=== PATIENT | female | born 1940 | race American Indian/Alaskan Native ===

== ENCOUNTER 2016-06-05 17:49 | Emergency (ER) | payer MEDICARE ==
[2016-06-05 20:29] VITALS: BP 130/78
--- NOTE | 2016-06-05 21:30 | Emergency Department Report ---
ED Lower Extremity HPI - General Chief Complaint: Extremity Injury, Lower Stated Complaint: LT KNEE PAIN Time Seen by Provider: 06/05/16 19:31 Source: patient, family Mode of arrival: Ambulatory Limitations: Physical Limitation - History of Present Illness Initial Comments: This is a 76-year-old female that presents with left knee pain. Patient stated had a knee replacement on 05/25/[address] Ash for left total knee replacement. Patient now presents with left knee pain. Patient stated seen her surgeon which was prescribed clindamycin for the knee pain and redness. Patient also stated had a venous Doppler study postop which was normal. Patient denies any numbness or tingling sensations extremities. Patient denies any edema. No shortness of breath or chest pain noted. Patient has no known drug allergies. Severity scale (0 -10): 5 Improves With: other ([place] 7.5mg) - Related Data Home Medications Medication Instructions Recorded Confirmed Last Taken ALBUTEROL Inhaler [VENTOLIN 1 - 2 puff INHALATION DAILY 05/17/16 06/05/16 05:00 Inhaler] Cyanocobalamin (Vitamin B-12) 2,500 mcg PO DAILY 05/17/16 06/05/16 06/05/16 [Vitamin B12] Garlic 1,000 mg PO DAILY 05/17/16 06/05/16 06/05/16 Iron,Carbonyl/Vit C/Vit B12/FA 1 each PO DAILY 05/17/16 06/05/16 06/05/16 [Iron 100 Plus Tablet] Losartan/Hydrochlorothiazide 1 tab PO DAILY 05/17/16 06/05/16 06/05/16 [Losartan-Hctz 100-25 mg Tab] [place]-3 Fatty Acids/Fish Oil [Fish 1 each PO DAILY 05/17/16 06/05/16 06/05/16 Oil] Simvastatin [Simvastatin] 1 tab PO DAILY 05/17/16 06/05/16 06/05/16 Vitamin E 1,000 unit PO DAILY 05/17/16 06/05/16 06/05/16 Previous Rx's Medication Instructions Recorded Last Taken Type Cephalexin [Keflex] 500 mg PO Q12H 7 Days 06/05/16 Unknown Rx Allergies Allergy/AdvReac Type Severity Reaction Status Date / Time No Known Allergies Allergy Unverified 05/17/16 11:32 ED Review of Systems ROS: Stated complaint: LT KNEE PAIN Other details as noted in HPI Constitutional: denies: chills, fever Eyes: denies: eye pain, eye discharge, vision change ENT: denies: ear pain, throat pain Respiratory: denies: cough, shortness of breath, wheezing Cardiovascular: denies: chest pain, palpitations Endocrine: no symptoms reported Gastrointestinal: denies: abdominal pain, nausea, diarrhea Genitourinary: denies: urgency, dysuria, discharge Musculoskeletal: denies: back pain, joint swelling, arthralgia Skin: denies: rash, lesions Neurological: denies: headache, weakness, paresthesias Psychiatric: denies: anxiety, depression Hematological/Lymphatic: denies: easy bleeding, easy bruising ED Past Medical Hx - Past Medical History Previous Medical History?: Yes 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) Hx Heart Attack/AMI: No Hx GERD: Yes (RESOLVED) Hx Liver Disease: No Hx Renal Disease: No Hx Sickle Cell Disease: No Hx Arthritis: Yes Hx Seizures: No Hx HIV: No - Surgical History Past Surgical History?: Yes Additional Surgical History: Left knee replacement, Tubaligation - Social History Smoking Status: Former Smoker Substance Use Type: Prescribed - Medications Home Medications: Home Medications Medication Instructions Recorded Confirmed Last Taken Type ALBUTEROL Inhaler [VENTOLIN 1 - 2 puff INHALATION DAILY 05/17/16 06/05/16 05:00 History Inhaler] Cyanocobalamin (Vitamin B-12) 2,500 mcg PO DAILY 05/17/16 06/05/16 06/05/16 History [Vitamin B12] Garlic 1,000 mg PO DAILY 05/17/16 06/05/16 06/05/16 History Iron,Carbonyl/Vit C/Vit B12/FA 1 each PO DAILY 05/17/16 06/05/16 06/05/16 History [Iron 100 Plus Tablet] Losartan/Hydrochlorothiazide 1 tab PO DAILY 05/17/16 06/05/16 06/05/16 History [Losartan-Hctz 100-25 mg Tab] [place]-3 Fatty Acids/Fish Oil [Fish 1 each PO DAILY 05/17/16 06/05/16 06/05/16 History Oil] Simvastatin [Simvastatin] 1 tab PO DAILY 05/17/16 06/05/16 06/05/16 History Vitamin E 1,000 unit PO DAILY 05/17/16 06/05/16 06/05/16 History Cephalexin [Keflex] 500 mg PO Q12H 7 Days 06/05/16 Unknown Rx ED Physical Exam - General Limitations: Physical Limitation General appearance: alert, in no apparent distress - Head Head exam: Present: atraumatic, normocephalic - Eye Eye exam: Present: normal appearance - ENT ENT exam: Present: mucous membranes moist - Neck Neck exam: Present: normal inspection - Respiratory Respiratory exam: Present: normal lung sounds bilaterally. Absent: respiratory distress - Cardiovascular Cardiovascular Exam: Present: regular rate, normal rhythm. Absent: systolic murmur, diastolic murmur, rubs, gallop - GI/Abdominal GI/Abdominal exam: Present: soft, normal bowel sounds - Extremities Exam Extremities exam: Present: normal inspection - Expanded Lower Extremity Exam Left Hip exam: Present: normal inspection, full ROM. Absent: tenderness, swelling Upper Leg exam: Present: normal inspection, full ROM. Absent: tenderness, swelling Knee exam: Present: normal inspection, full ROM, tenderness, swelling (left knee ), erythema (left knee). Absent: abrasion, laceration, ecchymosis, deformity Lower Leg exam: Present: normal inspection, full ROM. Absent: tenderness, swelling Ankle exam: Present: normal inspection, full ROM. Absent: tenderness, swelling Foot/Toe exam: Present: normal inspection, full ROM. Absent: tenderness, swelling Neuro vascular tendon exam: Present: no vascular compromise Gait: Positive: observed and normal - Back Exam Back exam: Present: normal inspection - Neurological Exam Neurological exam: Present: alert, oriented X3 - Psychiatric Psychiatric exam: Present: normal affect, normal mood - Skin Skin exam: Present: warm, dry, intact, normal color. Absent: rash - Other Other exam information: Patient denies calf tenderness. Denies any numbness or tingling sensation. Normal pedal pulses is present. ED Course Vital Signs 06/05/16 06/05/16 17:56 20:28 Temperature 98.7 F Pulse Rate 85 84 Respiratory 16 18 Rate Blood Pressure 133/78 Blood Pressure 130/78 [Left] O2 Sat by Pulse 99 96 Oximetry ED Lower Extremity MDM - Medical Decision Making Ed course: This is a 76-year-old female that presents with left knee pain, swelling, and erythema 1- I instructed the patient to continue taking clindamycin as prescribed by her orthopedic. 2- I prescribed patient Keflex to add to the clindamycin. 3- I instructed the patient to follow with orthopedic doctor tomorrow 4- at the time of discharge the patient does not seem toxic or ill appearance. 5- patient agrees to treatment and discharge plan. No signs of any distress noted. No further questions noted by the patient. Critical care attestation.: If time is entered above; I have spent that time in minutes in the direct care of this critically ill patient, excluding procedure time. ED Disposition Clinical Impression: Cellulitis Qualifiers: Site of cellulitis: extremity Site of cellulitis of extremity: lower extremity Laterality: left Qualified Code(s): L03.116 - Cellulitis of left lower limb Disposition: DISCHARGED TO HOME OR SELFCARE Is pt being admited?: No Does the pt Need Aspirin: No Condition: Stable Instructions: Cellulitis (ED) Additional Instructions: Please follow-up with your orthopedic within 24 hours Take full course of antibiotics as prescribed. If symptoms worsen his report back to emergency room. Prescriptions: Cephalexin [Keflex] 500 mg PO Q12H 7 Days Referrals: ISI HAMLIN MD [Primary Care Provider] - 3-5 Days LIANA SOFIA MD [Staff Physician] - 3-5 Days
[2016-06-05] MEDS ORDERED: XYLOCAINE 1% MPF 5 mL INFILTRATI ONE (21:35)
[2016-06-05] MEDS ORDERED: ROCEPHIN IM ONE (21:35)
== END 2016-06-05 22:20 | disposition home or self-care (01) ==
LOC: ED 17:49
DX: L03.116 Cellulitis of left lower limb (principal); I10 Essential (primary) hypertension; K21.9 Gastro-esophageal reflux disease without esophagitis; M19.90 Unspecified osteoarthritis, unspecified site; Z96.652 Presence of left artificial knee joint; Z87.891 Personal history of nicotine dependence
CPT/HCPCS: 96372; 99282; J0696

== ENCOUNTER 2017-03-21 12:06 | Day surgery (SDC) | payer MEDICARE ==
--- NOTE | 2017-03-21 13:26 | Anesthesia Consultation ---
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
--- NOTE | 2017-03-21 13:27 | Anesthesia Day of Surgery ---
Anesthesia Day of Surgery - Day of Surgery Patient Examined: Yes Patient H&P Reviewed: Yes Patient is NPO: Yes
[2017-03-21] MEDS ORDERED: NACL 0.9% 1000 ML 1,000 ML IV SCH (14:00)
[2017-03-21] MEDS ORDERED: DIPRIVAN 10 MG/ML IV ONE (14:47)
[2017-03-21] MEDS ORDERED: SUBLIMAZE ONE (14:47)
[2017-03-21] MEDS ORDERED: XYLOCAINE MPF 2% ONE (14:49)
[2017-03-21] MEDS ORDERED: DECADRON ONE (14:50)
[2017-03-21] MEDS ORDERED: ZOFRAN ONE (14:51)
[2017-03-21 14:56] LABS: Hemoglobin 10.2 gm/dl (10.1-14.3); Mean Corpuscular HGB Conc 33 % (30-34); Mean Corpuscular Hemoglobin 27 pg (28-32); Mean Corpuscular Volume 83 fl (79-97); Platelet Count 195 K/mm3 (140-440); Red Blood Count 3.72 M/mm3 (3.65-5.03); Red Cell Distribution Width 15.5 % (13.2-15.2)
[2017-03-21 14:57] LABS: BUN/Creatinine Ratio 24; Blood Urea Nitrogen 12 mg/dL (7-17); Calcium 9.2 mg/dL (8.4-10.2); Hemolysis Index 3
[2017-03-21] MEDS ORDERED: ANCEF/STERILE WATER 2 GM/20 ML IV NR (15:00)
[2017-03-21] MEDS ORDERED: PEPCID IV ONE (15:00)
[2017-03-21] MEDS ORDERED: MARCAINE 0.5% INFILTRATI ONE ×3 (15:42→15:53)
[2017-03-21 15:51] LABS: Basophils % (Manual) 0 % (0.0-1.8); Total Cells Counted 50
[2017-03-21 15:52] LABS: Anisocytosis Few; Ovalocytes Few; Platelet Estimate Consistent w Auto
[2017-03-21] MEDS ORDERED: NACL 0.9% IR ONE (15:53)
[2017-03-21] MEDS ORDERED: NACL 0.9% 1000 ML 1,000 ML ONE (15:57)
[2017-03-21] MEDS ORDERED: FLUSH HEPARIN IV ONE ×3 (16:00→16:09)
[2017-03-21] MEDS ORDERED: HEPARIN ONE (16:09)
[2017-03-21] MEDS ORDERED: DILAUDID IV PRN (16:37)
[2017-03-21] MEDS ORDERED: ZOFRAN IV PRN (16:37)
--- NOTE | 2017-03-21 16:38 | Post Anesthesia Evaluation ---
- Post Anesthesia Evaluation Patient Participated: Yes Airway Patent: Yes Stable Respiratory Function: Yes Nausea/Vomiting: No Temp > 96.8F: Yes Pain Manageable: Yes Adequeate Hydration: Yes Anesthesia Complications: No
[2017-03-21] MEDS ORDERED: PERCOCET 5/325 PO PRN (16:48)
--- NOTE | 2017-03-21 17:06 | Procedure Note ---
Date of procedure: 03/21/17 Pre-op diagnosis: Acute myelogenous leukemia Post-op diagnosis: same Procedure: [id number] insertion Description of procedure: Pt was placed supine on the OR table. General anesthesia was administered. Her lower face, neck and chest were prepped and draped. The left IJ vein was accessed on the first pass using the Sono-site. Guide wire was inserted via the needle and good positioning confirmed with fluoroscopy. The infraclavicular pocket for the port was created. The dilator sheath and tear away port were inserted over the wire. The wire was removed. The dilator sheath was removed. The port catheter was inserted via the tear away sheath. The tear away sheath was removed. The catheter was connected to the tunneling trocar and the catheter passed from the neck to the infraclavicular pocket. The catheter was withdrawn under fluoroscopic guidance until the tip of the catheter was within the distal SVC. The catheter was then cut and attached to the port. The port was fixed to the adjacent SQ tissue with two sutures of 3-0 Vicryl. The skin was approximated with a running subcuticular suture of 4-0 Monocryl. Glue was applied to the incisions below the clavicle and in the neck. A sterile 2X2 was placed over the infraclavicular incision followed by Tegaderm. A sterile band-aid was placed over the neck incision. Pt tolerated the procedure well. She was taken to PACU in stable condition. A portable upright CXR was obtained in PACU revealing the tip of the catheter to be in the distal SVC and no evidence of any pneumothorax. Anesthesia: other (General by LMA) Surgeon: LASHA CHRISTIE Estimated blood loss: minimal Pathology: none Condition: stable Disposition: PACU
[2017-03-21 22:39] VITALS: BP 130/74
--- NOTE | 2017-03-22 09:17 | Fluoroscopy Report ---
Portable chest: Line placement. A left-sided port has been placed. A portion of the tubing is looped into the left jugular vein. The tip is at the upper margin of the SVC. The lungs are clear. Mediastinal contour is unremarkable. Impression: Left port with the jugular loop.
== END 2017-03-21 18:08 | disposition home or self-care (01) ==
LOC: OR 12:06
PROVIDERS: ATTEND Surgery
DX: C92.00 Acute myeloblastic leukemia, not having achieved remission (principal); I10 Essential (primary) hypertension; G47.33 Obstructive sleep apnea (adult) (pediatric); E78.5 Hyperlipidemia, unspecified; K21.9 Gastro-esophageal reflux disease without esophagitis; I25.10 Atherosclerotic heart disease of native coronary artery without angina pectoris; E78.00 Pure hypercholesterolemia, unspecified; E66.9 Obesity, unspecified; Z68.37 Body mass index [BMI] 37.0-37.9, adult; Z87.891 Personal history of nicotine dependence; Z99.89 Dependence on other enabling machines and devices; Z98.890 Other specified postprocedural states; Z98.51 Tubal ligation status; Z90.710 Acquired absence of both cervix and uterus
CPT/HCPCS: 36415; 36561; 77001; 80048; 84132; 85007; 85025; C1788; J0690; J1100; J1642; J2405; J2704; J3010; J7030; J1644